=== PATIENT | female | born 1995 | race Caucasian/White ===

== ENCOUNTER 2016-12-07 17:34 | Emergency (ER) | payer BC, MEDICAID ==
[2016-12-07] MEDS ORDERED: Sodium Chloride 0.9% 2,000 ML IV ONE (19:47)
--- NOTE | 2016-12-07 19:54 | ED Physician Chart ---
ED Chief Complaint/HPI - Patient Information Date Seen:: 12/07/16 Time Seen:: 19:40 Chief Complaint:: abdominal pain History of Present Illness:: two days ago developed diffuse abdominal pain and watery diarrhea. Had diarrhea 5-6 times today. Vomited once today. Has had chills; temperature not taken. Allergies:: Allergies Allergy/AdvReac Type Severity Reaction Status Date / Time Penicillins Allergy Verified 12/07/16 17:57 Vitals:: Vital Signs - 8 hr 12/07/16 17:49 Temp 99.9 F HR 118 RR 16 BP 126/80 O2 Sat % 100 Historian:: Patient Review:: Nurse's Note Reviewed ED Review of Systems - Review of Systems General/Constitutional: Chills Skin: No skin lesions Head: No headache Eyes: No loss of vision ENT: No earache Neck: No neck pain Cardio Vascular: No chest pain Pulmonary: No SOB, No cough GI: Nausea, Vomiting, Diarrhea G/U: No dysuria Endocrine: No polyuria, No polydipsia Psychiatric: No prior psych history Hematopoietic: No bruising, No lymphadenopathy Family Medical History - Family Member Mother History Unknown: Yes ED Septic Shock - . Is Septic Shock (SBP<90, OR Lactate>4 mmol\L) present?: No - <6hrs of presentation: Vital Signs: Vital Signs - 8 hr 12/07/16 17:49 Temp 99.9 F HR 118 RR 16 BP 126/80 O2 Sat % 100
[2016-12-07 20:16] LABS: % EOSINOPHILS 0.1 % (0.0-5.0); % LYMPHOCYTES 9.2 % (20.0-50.0); % MONOCYTES 5.5 % (2.0-10.0); % NEUTROPHILS 84.2 % (40.0-80.0); HEMATOCRIT 41.4 % (35.0-45.0); HEMOGLOBIN 14.1 gm/dL (11.7-15.5); MEAN CELL VOLUME 89.6 fl (81-100); MEAN CORPUSCULAR HEMOGLOBIN 30.5 pg (27.0-31.0); MEAN CORPUSCULAR HGB CONC 34.1 pg (28.0-36.0); MEAN PLATELET VOLUME 9.1 fl; PLATELET COUNT 162 Th/cmm (150-400); RED BLOOD COUNT 4.62 Mil/cmm (3.80-5.10); RED CELL DISTRIBUTION WIDTH 11.5 % (11.5-20.0); WHITE BLOOD COUNT 8.4 Th/cmm (4.8-10.8)
[2016-12-07 20:18] LABS: URINE BILIRUBIN MODERATE (NEGATIVE); URINE BLOOD NEGATIVE (NEGATIVE); URINE GLUCOSE (UA) NEGATIVE (NEGATIVE); URINE KETONE 40 mg/dL (NEGATIVE); URINE PROTEIN 30 mg/dL (NEGATIVE); URINE UROBILINOGEN 0.2 E.U./dL (0.2 - 1.0)
[2016-12-07 20:33] LABS: ANION GAP 10.8 (7.0-16.0); BUN - UREA NITROGEN 9 mg/dL (7-25); BUN/CREATININE RATIO 11.3; CALCIUM SERUM 9.4 mg/dL (8.6-10.3); CARBON DIOXIDE 21.8 mEq/L (21.0-31.0); CHLORIDE 101 mEq/L (98-107); CREATININE - SERUM 0.8 mg/dL (0.6-1.2); GLUCOSE 88 mg/dL (70-105); MAGNESIUM 2.3 mg/dL (1.9-2.7); POTASSIUM SERUM 3.6 mEq/L (3.5-5.1); SODIUM SERUM 130 mEq/L (136-145)
[2016-12-07 20:36] LABS: URINE COLOR YELLOW
[2016-12-07 20:37] LABS: URINE BACTERIA NONE SEEN /hpf (NONE SEEN); URINE EPITHELIAL CELLS NONE SEEN /lpf (FEW); URINE RBC NONE SEEN /hpf (0-5); URINE WBC NONE SEEN /hpf (0-5)
[2016-12-07] MEDS ORDERED: HYDROmorphone 1 mg/mL 1mL Syr IVP STA (22:48)
[2016-12-07] MEDS ORDERED: HYDROmorphone 1 mg/mL 1mL Syr ONE (22:51)
--- NOTE | 2016-12-08 08:16 | Diagnostic Imaging Report ---
Abdominal ultrasound limited History: Right lower quadrant pain, rule out appendicitis Comparison: None Technique/procedure: Sonography of the right hemiabdomen was performed in multiple planes. Limited images of the right hemiabdomen were obtained. The Appendix is not visualized. No evidence of gross gallstones. IMPRESSION: The appendix is not visualized. If there is continued concern for acute appendicitis, CT examination is also recommended for further assessment.
== END 2016-12-07 23:10 | disposition home or self-care (01) ==
LOC: ER 17:34
DX: R19.7 Diarrhea, unspecified (principal); E87.1 Hypo-osmolality and hyponatremia
CPT/HCPCS: 36415-UA; 76705-TC; 80048-TC; 81001-TC; 81025-TC; 83735-TC; 85025-TC; 96374; J1170; J7030; Z7610

== ENCOUNTER 2016-12-08 14:06 | Inpatient (IN) | payer BC ==
[2016-12-08] MEDS ORDERED: IOHEXOL 300MG/ML 100 ML VIAL IVP ONE (14:07)
--- NOTE | 2016-12-08 14:37 | ED Physician Chart ---
ED Chief Complaint/HPI - Patient Information Date Seen:: 12/08/16 Time Seen:: 14:24 Chief Complaint:: RIGHT LOWER QUADRANT PAIN History of Present Illness:: THIS IS A 21 YR OLD FEMALE WHO WAS SEEN YESTERDAY BY DR. RAJPUT AND EVALUATED FOR HER ABDOMINAL PAIN. SHE RETURNED TODAY BECAUSE SHE IS NOT BETTER. SHE IS REQUESTING A CT SCAN OF THE ABDOMEN. SHE DENIES VOMITING TODAY AND HAS BEEN DRINKING PEDIALYTE. Allergies:: Allergies Allergy/AdvReac Type Severity Reaction Status Date / Time Penicillins Allergy Verified 12/07/16 17:57 Vitals:: Vital Signs - 8 hr 12/08/16 14:14 Temp 98.3 F HR 85 RR 16 BP 117/73 O2 Sat % 98 Historian:: Patient Review:: Nurse's Note Reviewed, Old Chart Reviewed ED Review of Systems - Review of Systems General/Constitutional: No fever, No chills, No weight loss, No weakness, No diaphoresis, No edema, No loss of appetite Skin: No skin lesions, No rash, No bruising Head: No headache, No light-headedness Eyes: No loss of vision, No pain, No diplopia ENT: No earache, No nasal drainage, No sore throat, No tinnitus Neck: No neck pain, No swelling, No thyromegaly, No stiffness, No mass noted Cardio Vascular: No chest pain, No palpitations, No PND, No orthopnea, No edema Pulmonary: No SOB, No cough, No sputum, No wheezing GI: No nausea, No vomiting, No diarrhea, Pain, No melena, No hematochezia, No constipation, No hematemesis G/U: No dysuria, No frequency, No hematuria Musculoskeletal: No bone or joint pain, No back pain, No muscle pain Endocrine: No polyuria, No polydipsia Psychiatric: No prior psych history, No depression, No anxiety, No suicidal ideation Hematopoietic: No bruising, No lymphadenopathy Allergic/Immuno: No urticaria, No angioedema Neurological: No syncope, No focal symptoms, No weakness, No paresthesia, No headache, No seizure, No dizziness, No confusion, No vertigo ED Past Medical History - Past Medical History Obtainable: Yes Past Medical History: No significant medical hx Family History: None Social History: Non Smoker, No Alcohol, No Drug Use Surgical History: None Psychiatricy History: None Medication: Reviewed Family Medical History - Family Member Mother History Unknown: Yes ED Physical Exam - Physical Examination General/Constitutional: Awake, Well-developed, well-nourished, Alert, No distress, GCS 15, Non-toxic appearing, Ambulatory Head: Atraumatic Eyes: Lids, conjuctiva normal, PERRL, EOMI Skin: Nl inspection, No rash, No skin lesions, No ecchymosis, Well hydrated, No lymphadenopathy ENMT: External ears, nose nl, Nasal exam nl, Lips, teeth, gums nl Neck: Nontender, Full ROM w/o pain, No JVD, No nuchal rigidity, No bruit, No mass, No stridor Respiratory: Nl effort/Exclusion, Clear to Auscultation, No Wheeze/Rhonchi/Rales Cardio Vascular: RRR, No murmur, gallop, rubs, NL S1 S2 GI: No organomegaly, No hernia, Normal BS's, Nondistended, No mass/bruits, No McBurney tenderness Other GI comments:: RIGHT LOWER QUADRANT TENDERNESS : No CVA tenderness Extremities: No tenderness or effusion, Full ROM, normal strength in all extremities, No edema, Normal digits & nails Neuro/Psych: Alert/oriented, DTR's symmetric, Normal sensory exam, Normal motor strength, Judgement/insight normal, Mood normal, Normal gait, No focal deficits Misc: normal gait, Normal back, No paraspinal tenderness ED Labs/Radiology/EKG Results - Lab Results Results: Abnormal Lab Results 12/08/16 12/08/16 12/08/16 14:44 14:44 14:44 WBC 6.6 D RBC 4.36 Hgb 13.1 Hct 39.4 MCV 90.4 MCH 30.0 MCHC Differential 33.2 RDW 11.2 L Plt Count 152 MPV 9.7 Neutrophils % 75.8 Lymphocytes % 13.4 L Monocytes % 10.3 H Eosinophils % 0.1 Basophils % 0.4 Sodium 134 L Potassium 3.8 Chloride 104 Carbon Dioxide 22.2 Anion Gap 11.6 BUN 8 Creatinine 0.8 Est GFR ( Amer) > 60.0 Est GFR (Non-Af Amer) > 60.0 BUN/Creatinine Ratio 10.0 Glucose 82 Calcium 9.1 Total Bilirubin 0.3 AST 24 ALT 23 Alkaline Phosphatase 37 Troponin I < 0.01 L Total Protein 6.9 Albumin 4.0 Globulin 2.9 Albumin/Globulin Ratio 1.4 - Radiology Results Results: CT SCAN OF THE ABDOMEN = DISTENDED GB AND DISTEND COMMON BILE DUCT ILEUS ED Assessment - Assessment General Assessment: ABDOMINAL PAIN ED Septic Shock - . Is Septic Shock (SBP<90, OR Lactate>4 mmol\L) present?: No - <6hrs of presentation: Vital Signs: Vital Signs - 8 hr 12/08/16 14:14 Temp 98.3 F HR 85 RR 16 BP 117/73 O2 Sat % 98 ED Reassessment (Disposition) - Reassessment Reassessment:: CBD DISTENTION DISTENDED GALLBLADDER ILLEUS - Diagnosis Diagnosis:: COMMON BILE DUCT DISTENSION GALLBLADDER DISTENTION ILLEUS - Patient Disposition Discharge/Transfer:: Acute Care w/in this hosp Admitted to:: Med/Surg Admitting Medical Physician:: Darnell Boone Condition at Disposition:: Unchanged ED Discharge Plan - Patient Disposition Admit/Discharge/Transfer: Acute Care w/in this hosp Condition at Disposition: Unchanged
[2016-12-08 15:22] LABS: % BASOPHILS 0.4 % (0.0-2.0); % EOSINOPHILS 0.1 % (0.0-5.0); % LYMPHOCYTES 13.4 % (20.0-50.0); % MONOCYTES 10.3 % (2.0-10.0); % NEUTROPHILS 75.8 % (40.0-80.0); HEMATOCRIT 39.4 % (35.0-45.0); HEMOGLOBIN 13.1 gm/dL (11.7-15.5); MEAN CELL VOLUME 90.4 fl (81-100); MEAN CORPUSCULAR HGB CONC 33.2 pg (28.0-36.0); MEAN PLATELET VOLUME 9.7 fl; PLATELET COUNT 152 Th/cmm (150-400); RED BLOOD COUNT 4.36 Mil/cmm (3.80-5.10); RED CELL DISTRIBUTION WIDTH 11.2 % (11.5-20.0)
[2016-12-08 15:29] LABS: WHITE BLOOD COUNT 6.6 Th/cmm (4.8-10.8)
[2016-12-08 15:43] LABS: ALB/GLOB RATIO 1.4 (1.0-1.8); ALKALINE PHOSPHATASE 37 U/L (34-104); ANION GAP 11.6 (7.0-16.0); BILIRUBIN,TOTAL 0.3 mg/dL (0.3-1.0); BUN - UREA NITROGEN 8 mg/dL (7-25); CALCIUM SERUM 9.1 mg/dL (8.6-10.3); CARBON DIOXIDE 22.2 mEq/L (21.0-31.0); CHLORIDE 104 mEq/L (98-107); CREATININE - SERUM 0.8 mg/dL (0.6-1.2); GLUCOSE 82 mg/dL (70-105); POTASSIUM SERUM 3.8 mEq/L (3.5-5.1); SGOT 24 U/L (13-39); SGPT/ALT 23 U/L (7-52); SODIUM SERUM 134 mEq/L (136-145)
[2016-12-08] MEDS ORDERED: Sodium Chloride 0.45% 500 ML IV ONE (16:28)
[2016-12-08] MEDS ORDERED: Morphine Sulfate 2 mg/mL 1mL Syr IVP PRN (20:55)
[2016-12-08] MEDS: Sodium Chloride 0.9% 1,000 ML IV SCH (22:43)
[2016-12-08 23:42] VITALS: BP 118/74
[2016-12-09 07:21] LABS: URINE BILIRUBIN SMALL (NEGATIVE); URINE BLOOD NEGATIVE (NEGATIVE); URINE COLOR y; URINE GLUCOSE (UA) NEGATIVE (NEGATIVE); URINE KETONE >=80 mg/dL (NEGATIVE); URINE PH 6.5 (4.6 - 8.0); URINE PROTEIN TRACE mg/dL (NEGATIVE); URINE UROBILINOGEN 0.2 E.U./dL (0.2 - 1.0)
[2016-12-09 07:28] LABS: URINE BACTERIA FEW /hpf (NONE SEEN); URINE EPITHELIAL CELLS MODERATE /lpf (FEW); URINE RBC NONE SEEN /hpf (0-5)
--- NOTE | 2016-12-09 09:10 | Diagnostic Imaging Report ---
Exam: CT examination abdomen pelvis. HISTORY: Right lower quadrant pain. Total DLP equals 288 CTDI equals 6.8 Findings: Multiple contiguous thin section of the abdomen pelvis obtained from lower thorax to pubic symphysis with administration of intravenous contrast material. Oral contrast was not utilized no prior studies available for comparison. The study demonstrates normal aeration of lung parenchyma the bases There is evidence for a hepatic splenomegaly. The gallbladder is distended. The common bile duct is slightly prominent. Clinical correlation ultrasound examination of the gallbladder is recommended. Pancreas poorly seen. The adrenal glands are normal. The kidneys concentrate and excrete contrast material normal fashion. No free fluid is noted. There is evidence of for a large inhomogeneous uterus most likely due to fibroid infiltration. There is a question of ovarian cysts if clinically indicated ultrasound examination of pelvis might be helpful. Small amount of fluid in the cul-de-sac appreciated might be physiological. Mild distention small bowel loops the lower abdomen noted mild ileus cannot be excluded. IMPRESSION: 1. Distended gallbladder with prominent common bile duct ultrasound examination of gallbladder is recommended. 2. Enlarged bulky uterus most likely due to fibroid infiltration. Ovarian cysts cannot be excluded ultrasound examination of pelvis might be helpful. 3. Mild ileus.
[2016-12-09] MEDS: Sodium Chloride 0.9% 1,000 ML IV SCH ×2 (09:15→19:08)
--- NOTE | 2016-12-09 13:24 | General Progress Note ---
Subjective - Review of Systems Service Date: 12/09/16 Events since last encounter: consult dictated has GB stones with dilated CBD will order HIDA and schedule for surgery Objective - Results Result Diagrams: 12/08/16 14:44 12/08/16 14:44 Recent Labs: Laboratory Last Values WBC 6.6 Th/cmm (4.8-10.8) D 12/08/16 14:44 RBC 4.36 Mil/cmm (3.80-5.10) 12/08/16 14:44 Hgb 13.1 gm/dL (11.7-15.5) 12/08/16 14:44 Hct 39.4 % (35.0-45.0) 12/08/16 14:44 MCV 90.4 fl (81-100) 12/08/16 14:44 MCH 30.0 pg (27.0-31.0) 12/08/16 14:44 MCHC Differential 33.2 pg (28.0-36.0) 12/08/16 14:44 RDW 11.2 % (11.5-20.0) L 12/08/16 14:44 Plt Count 152 Th/cmm (150-400) 12/08/16 14:44 MPV 9.7 fl 12/08/16 14:44 Neutrophils % 75.8 % (40.0-80.0) 12/08/16 14:44 Lymphocytes % 13.4 % (20.0-50.0) L 12/08/16 14:44 Monocytes % 10.3 % (2.0-10.0) H 12/08/16 14:44 Eosinophils % 0.1 % (0.0-5.0) 12/08/16 14:44 Basophils % 0.4 % (0.0-2.0) 12/08/16 14:44 Sodium 134 mEq/L (136-145) L 12/08/16 14:44 Potassium 3.8 mEq/L (3.5-5.1) 12/08/16 14:44 Chloride 104 mEq/L (98-107) 12/08/16 14:44 Carbon Dioxide 22.2 mEq/L (21.0-31.0) 12/08/16 14:44 Anion Gap 11.6 (7.0-16.0) 12/08/16 14:44 BUN 8 mg/dL (7-25) 12/08/16 14:44 Creatinine 0.8 mg/dL (0.6-1.2) 12/08/16 14:44 Est GFR ( Amer) > 60.0 ml/min (>90) 12/08/16 14:44 Est GFR (Non-Af Amer) > 60.0 ml/min 12/08/16 14:44 BUN/Creatinine Ratio 10.0 12/08/16 14:44 Glucose 82 mg/dL (70-105) 12/08/16 14:44 Calcium 9.1 mg/dL (8.6-10.3) 12/08/16 14:44 Total Bilirubin 0.3 mg/dL (0.3-1.0) 12/08/16 14:44 AST 24 U/L (13-39) 12/08/16 14:44 ALT 23 U/L (7-52) 12/08/16 14:44 Alkaline Phosphatase 37 U/L (34-104) 12/08/16 14:44 Troponin I < 0.01 ng/mL (0.01-0.05) L 12/08/16 14:44 Total Protein 6.9 gm/dL (6.0-8.3) 12/08/16 14:44 Albumin 4.0 gm/dL (3.7-5.3) 12/08/16 14:44 Globulin 2.9 gm/dL 12/08/16 14:44 Albumin/Globulin Ratio 1.4 (1.0-1.8) 12/08/16 14:44 Amylase 41 U/L (29-103) 12/08/16 14:44 Lipase 29 U/L (11-82) 12/08/16 14:44 TSH 3.17 uIU/ml (0.34-5.60) 12/08/16 14:44 Urine Source CLEAN C 12/09/16 06:30 Urine Color y 12/09/16 06:30 Urine Clarity sl. cloudy (CLEAR) 12/09/16 06:30 Urine pH 6.5 (4.6 - 8.0) 12/09/16 06:30 Ur Specific [place] 1.010 (1.005-1.030) 12/09/16 06:30 Urine Protein TRACE mg/dL (NEGATIVE) 12/09/16 06:30 Urine Glucose (UA) NEGATIVE mg/dL (NEGATIVE) 12/09/16 06:30 Urine Ketones >=80 mg/dL (NEGATIVE) H 12/09/16 06:30 Urine Blood NEGATIVE (NEGATIVE) 12/09/16 06:30 Urine Nitrate NEGATIVE (NEGATIVE) 12/09/16 06:30 Urine Bilirubin SMALL (NEGATIVE) H 12/09/16 06:30 Urine Urobilinogen 0.2 E.U./dL (0.2 - 1.0) 12/09/16 06:30 Ur Leukocyte Esterase NEGATIVE (NEGATIVE) 12/09/16 06:30 Urine RBC NONE SEEN /hpf (0-5) 12/09/16 06:30 Urine WBC 2-5 /hpf (0-5) 12/09/16 06:30 Ur Epithelial Cells MODERATE /lpf (FEW) 12/09/16 06:30 Urine Bacteria FEW /hpf (NONE SEEN) 12/09/16 06:30 RPR NONREACTIVE (NONREACTIVE) 12/08/16 14:44 - Physical Exam Vitals and I&O: Vital Signs Temp 98 F 12/09/16 04:00 Pulse 67 12/09/16 04:00 Resp 18 12/09/16 04:00 BP 116/72 12/09/16 04:00 Pulse Ox 99 12/09/16 04:00 Intake & Output 12/08/16 12/09/16 12/09/16 18:59 06:59 18:59 Intake Total 948 Balance 948 Weight (lbs) 51.71 kg Intake: Intake, IV Amount 948 Sodium Chloride 0.9% 1, 948 000 ml @ 90 mls/hr IV . Q11H7M [facility] Rx#:[id number] Other: # Voids 1 # Bowel Movements 0 Active Medications: Current Medications Sodium Chloride (Nacl 0.9%) 1,000 mls @ 90 mls/hr IV .Q11H7M [facility] Stop: 02/06/17 20:48 Last Admin: 12/09/16 09:15 Dose: 90 mls/hr Morphine Sulfate (Morphine) 1 mg IVP Q6H PRN PRN Reason: Abdominal Pain Stop: 02/06/17 20:54 Assessment/Plan - Problem List Patient Problems: All Active Problems MID ABDOMINAL PAIN AROUND THE UMBILICUS (Acute)
--- NOTE | 2016-12-09 13:46 | Consultation ---
DATE OF CONSULTATION: 12/09/2016 REFERRING PHYSICIAN: Dr. Newton. REASON FOR CONSULTATION: Abdominal pain. Thank you for referring this patient to me. HISTORY OF PRESENT ILLNESS: This is a 21-year-old female who has had abdominal pain for the last 3 days. Associated with this, has been diarrhea. The patient came to ER and discharged, came back with increasing abdominal pain. She underwent CT scan of the abdomen this time and this showed distended gallbladder with prominent common bile duct and large uterus. WBC was normal. The liver function tests also normal. PHYSICAL EXAMINATION: There is moderate tenderness in the right upper and lower quadrants. RECOMMENDATIONS: We will order a HIDA scan to rule out common bile duct stones. Informed consent discussed with the patient regarding possible surgery, especially in view of her travelling so much with her boyfriend who is a DJ with the [employer]. Thank you, we will follow with you. JOB# [id number]
--- NOTE | 2016-12-09 15:51 | History and Physical ---
History of Present Illness - HPI Chief Complaint: Abdominal pain and diarrhea HPI: Patient refer benji last Sunday she just came from vacations in [place], 3 days after she came started with Abdominal pain colic type accompanied with diarrhea x 8, the first day and 5 times the next day, Pain increased reason why she decided to come to ER. Vital Signs: Last Vital Signs Temp 98 F 12/09/16 04:00 Pulse 67 12/09/16 04:00 Resp 18 12/09/16 04:00 BP 116/72 12/09/16 04:00 Pulse Ox 99 12/09/16 04:00 Past Medical History Cardiovascular: Report: No Pertinent Hx Pulmonary: Report: No Pertinent Hx ELECTRON BEAM WELDER: Report: No Pertinent Hx GI: Report: No Pertinent Hx Psych: Report: No Pertinent Hx Musculoskeletal: Report: No Pertinent Hx Rheumatologic: Report: No pertinent Hx Infectious Disease: Report: No Pertinent Hx Renal/: Report: No Pertinent Hx Endocrine: Report: No Pertinent Hx Dermatology: Report: No Pertinent Hx - Past Surgical History Past Surgical History: No pertinent Hx Family Medical History - Family Member Mother History Unknown: Yes Ethnicity: Living Status: Unknown Social History Smoke: No Alcohol: None Drugs: None Lives: With Family Domestic Violence: Negative - Medications Home Medications: Home Medication Medication Instructions Recorded Type NK [No Home Meds] 12/08/16 History - Allergies Allergies/Adverse Reactions: Allergies Allergy/AdvReac Type Severity Reaction Status Date / Time Penicillins Allergy Verified 12/07/16 17:57 Review of Systems - Review of Systems Constitutional: Report: No Significant Eyes: Report: No Significant ENT: Report: No Significant Respiratory: Report: No Significant Cardiovascular: Report: No Significant Gastrointestinal: Report: Nausea, Abdominal Pain, Diarrhea Genitourinary: Report: No Significant Musculoskeletal: Report: No Significant Neurological: Report: No Significant Physical Exam - Physical Exam HEENT: Report: Ears Nose Throat within normal limits Neck: Report: Within normal limits Cardiovascular Systems: Report: Regular, Rate and Rhythm Respiratory: Report: Breath Sounds are within normal limits Abdomen: Report: Tender to palpation (BS increased, Tender in all colon.) Back: Report: Inspection of back is within normal limits. Extremities: Report: Non-tender to palpation. Skin: Report: Color of skin is within normal limits, Warm, Dry Neuro/Psych: Report: Mood affect is within normal limits - Lab Results All Lab Results last 24 hours: Laboratory Last Values WBC 6.6 Th/cmm (4.8-10.8) D 12/08/16 14:44 RBC 4.36 Mil/cmm (3.80-5.10) 12/08/16 14:44 Hgb 13.1 gm/dL (11.7-15.5) 12/08/16 14:44 Hct 39.4 % (35.0-45.0) 12/08/16 14:44 MCV 90.4 fl (81-100) 12/08/16 14:44 MCH 30.0 pg (27.0-31.0) 12/08/16 14:44 MCHC Differential 33.2 pg (28.0-36.0) 12/08/16 14:44 RDW 11.2 % (11.5-20.0) L 12/08/16 14:44 Plt Count 152 Th/cmm (150-400) 12/08/16 14:44 MPV 9.7 fl 12/08/16 14:44 Neutrophils % 75.8 % (40.0-80.0) 12/08/16 14:44 Lymphocytes % 13.4 % (20.0-50.0) L 12/08/16 14:44 Monocytes % 10.3 % (2.0-10.0) H 12/08/16 14:44 Eosinophils % 0.1 % (0.0-5.0) 12/08/16 14:44 Basophils % 0.4 % (0.0-2.0) 12/08/16 14:44 Sodium 134 mEq/L (136-145) L 12/08/16 14:44 Potassium 3.8 mEq/L (3.5-5.1) 12/08/16 14:44 Chloride 104 mEq/L (98-107) 12/08/16 14:44 Carbon Dioxide 22.2 mEq/L (21.0-31.0) 12/08/16 14:44 Anion Gap 11.6 (7.0-16.0) 12/08/16 14:44 BUN 8 mg/dL (7-25) 12/08/16 14:44 Creatinine 0.8 mg/dL (0.6-1.2) 12/08/16 14:44 Est GFR ( Amer) > 60.0 ml/min (>90) 12/08/16 14:44 Est GFR (Non-Af Amer) > 60.0 ml/min 12/08/16 14:44 BUN/Creatinine Ratio 10.0 12/08/16 14:44 Glucose 82 mg/dL (70-105) 12/08/16 14:44 Calcium 9.1 mg/dL (8.6-10.3) 12/08/16 14:44 Total Bilirubin 0.3 mg/dL (0.3-1.0) 12/08/16 14:44 AST 24 U/L (13-39) 12/08/16 14:44 ALT 23 U/L (7-52) 12/08/16 14:44 Alkaline Phosphatase 37 U/L (34-104) 12/08/16 14:44 Troponin I < 0.01 ng/mL (0.01-0.05) L 12/08/16 14:44 Total Protein 6.9 gm/dL (6.0-8.3) 12/08/16 14:44 Albumin 4.0 gm/dL (3.7-5.3) 12/08/16 14:44 Globulin 2.9 gm/dL 12/08/16 14:44 Albumin/Globulin Ratio 1.4 (1.0-1.8) 12/08/16 14:44 Amylase 41 U/L (29-103) 12/08/16 14:44 Lipase 29 U/L (11-82) 12/08/16 14:44 TSH 3.17 uIU/ml (0.34-5.60) 12/08/16 14:44 Urine Source CLEAN C 12/09/16 06:30 Urine Color y 12/09/16 06:30 Urine Clarity sl. cloudy (CLEAR) 12/09/16 06:30 Urine pH 6.5 (4.6 - 8.0) 12/09/16 06:30 Ur Specific [place] 1.010 (1.005-1.030) 12/09/16 06:30 Urine Protein TRACE mg/dL (NEGATIVE) 12/09/16 06:30 Urine Glucose (UA) NEGATIVE mg/dL (NEGATIVE) 12/09/16 06:30 Urine Ketones >=80 mg/dL (NEGATIVE) H 12/09/16 06:30 Urine Blood NEGATIVE (NEGATIVE) 12/09/16 06:30 Urine Nitrate NEGATIVE (NEGATIVE) 12/09/16 06:30 Urine Bilirubin SMALL (NEGATIVE) H 12/09/16 06:30 Urine Urobilinogen 0.2 E.U./dL (0.2 - 1.0) 12/09/16 06:30 Ur Leukocyte Esterase NEGATIVE (NEGATIVE) 12/09/16 06:30 Urine RBC NONE SEEN /hpf (0-5) 12/09/16 06:30 Urine WBC 2-5 /hpf (0-5) 12/09/16 06:30 Ur Epithelial Cells MODERATE /lpf (FEW) 12/09/16 06:30 Urine Bacteria FEW /hpf (NONE SEEN) 12/09/16 06:30 Urine Test NEGATIVE 12/09/16 13:41 RPR NONREACTIVE (NONREACTIVE) 12/08/16 14:44 Laboratory Results - last 24 hr 12/09/16 12/09/16 06:30 13:41 Urine Source CLEAN C Urine Color y Urine Clarity sl. cloudy Urine pH 6.5 Ur Specific [place] 1.010 Urine Protein TRACE Urine Glucose (UA) NEGATIVE Urine Ketones >=80 H Urine Blood NEGATIVE Urine Nitrate NEGATIVE Urine Bilirubin SMALL H Urine Urobilinogen 0.2 Ur Leukocyte Esterase NEGATIVE Urine RBC NONE SEEN Urine WBC 2-5 Ur Epithelial Cells MODERATE Urine Bacteria FEW Urine Test NEGATIVE - Assessment Assessment: Current Active Problems Problem Status Onset MID ABDOMINAL PAIN AROUND THE UMBILICUS Acute Patient is awake, calm, in no acuter distress. Dx: amebic colitis, cholecystitis - Plan Plan: Patient in pain control, Metronidazole started, NPO except meds. Hida scan is ordered, Abdominal and Pelvic US ordered. Patient already seen by Surgery. Will continue to monitor
[2016-12-09] MEDS ORDERED: metroNIDAZOLE 500 mg/100 mL Premix Bag IV SCH (21:00)
[2016-12-10] MEDS: Sodium Chloride 0.9% 1,000 ML IV SCH (06:26)
[2016-12-10 06:54] LABS: ALB/GLOB RATIO 1.3 (1.0-1.8); ALKALINE PHOSPHATASE 43 U/L (34-104); ANION GAP 8.4 (7.0-16.0); BILIRUBIN,TOTAL 0.2 mg/dL (0.3-1.0); BUN - UREA NITROGEN 7 mg/dL (7-25); BUN/CREATININE RATIO 8.8; CALCIUM SERUM 8.5 mg/dL (8.6-10.3); CARBON DIOXIDE 21.4 mEq/L (21.0-31.0); CHLORIDE 107 mEq/L (98-107); CREATININE - SERUM 0.8 mg/dL (0.6-1.2); GLUCOSE 75 mg/dL (70-105); POTASSIUM SERUM 3.8 mEq/L (3.5-5.1); SGOT 26 U/L (13-39); SGPT/ALT 20 U/L (7-52); SODIUM SERUM 133 mEq/L (136-145)
[2016-12-10 06:55] LABS: % BASOPHILS 0.3 % (0.0-2.0); % EOSINOPHILS 0.5 % (0.0-5.0); % LYMPHOCYTES 34.3 % (20.0-50.0); % MONOCYTES 14.8 % (2.0-10.0); % NEUTROPHILS 50.1 % (40.0-80.0); HEMATOCRIT 35.6 % (35.0-45.0); HEMOGLOBIN 12.2 gm/dL (11.7-15.5); MEAN CELL VOLUME 89.2 fl (81-100); MEAN CORPUSCULAR HEMOGLOBIN 30.6 pg (27.0-31.0); MEAN CORPUSCULAR HGB CONC 34.3 pg (28.0-36.0); MEAN PLATELET VOLUME 9.8 fl; NEUTROPHILE ABSOLUTE 2.9 Th/cmm (1.8-8.0); PLATELET COUNT 132 Th/cmm (150-400); RED CELL DISTRIBUTION WIDTH 11.3 % (11.5-20.0); WHITE BLOOD COUNT 5.7 Th/cmm (4.8-10.8)
--- NOTE | 2016-12-10 09:40 | General Progress Note ---
Subjective - Review of Systems Service Date: 12/10/16 Subjective: I feel fine. Objective - Results Result Diagrams: 12/10/16 06:15 12/10/16 06:15 Recent Labs: Laboratory Last Values WBC 5.7 Th/cmm (4.8-10.8) 12/10/16 06:15 RBC 4.00 Mil/cmm (3.80-5.10) 12/10/16 06:15 Hgb 12.2 gm/dL (11.7-15.5) 12/10/16 06:15 Hct 35.6 % (35.0-45.0) 12/10/16 06:15 MCV 89.2 fl (81-100) 12/10/16 06:15 MCH 30.6 pg (27.0-31.0) 12/10/16 06:15 MCHC Differential 34.3 pg (28.0-36.0) 12/10/16 06:15 RDW 11.3 % (11.5-20.0) L 12/10/16 06:15 Plt Count 132 Th/cmm (150-400) L 12/10/16 06:15 MPV 9.8 fl 12/10/16 06:15 Neutrophils % 50.1 % (40.0-80.0) 12/10/16 06:15 Lymphocytes % 34.3 % (20.0-50.0) 12/10/16 06:15 Monocytes % 14.8 % (2.0-10.0) H 12/10/16 06:15 Eosinophils % 0.5 % (0.0-5.0) 12/10/16 06:15 Basophils % 0.3 % (0.0-2.0) 12/10/16 06:15 Sodium 133 mEq/L (136-145) L 12/10/16 06:15 Potassium 3.8 mEq/L (3.5-5.1) 12/10/16 06:15 Chloride 107 mEq/L (98-107) 12/10/16 06:15 Carbon Dioxide 21.4 mEq/L (21.0-31.0) 12/10/16 06:15 Anion Gap 8.4 (7.0-16.0) 12/10/16 06:15 BUN 7 mg/dL (7-25) 12/10/16 06:15 Creatinine 0.8 mg/dL (0.6-1.2) 12/10/16 06:15 Est GFR ( Amer) > 60.0 ml/min (>90) 12/10/16 06:15 Est GFR (Non-Af Amer) > 60.0 ml/min 12/10/16 06:15 BUN/Creatinine Ratio 8.8 12/10/16 06:15 Glucose 75 mg/dL (70-105) 12/10/16 06:15 Calcium 8.5 mg/dL (8.6-10.3) L 12/10/16 06:15 Total Bilirubin 0.2 mg/dL (0.3-1.0) L 12/10/16 06:15 AST 26 U/L (13-39) 12/10/16 06:15 ALT 20 U/L (7-52) 12/10/16 06:15 Alkaline Phosphatase 43 U/L (34-104) 12/10/16 06:15 Troponin I < 0.01 ng/mL (0.01-0.05) L 12/08/16 14:44 Total Protein 6.1 gm/dL (6.0-8.3) 12/10/16 06:15 Albumin 3.4 gm/dL (3.7-5.3) L 12/10/16 06:15 Globulin 2.7 gm/dL 12/10/16 06:15 Albumin/Globulin Ratio 1.3 (1.0-1.8) 12/10/16 06:15 Amylase 41 U/L (29-103) 12/08/16 14:44 Lipase 29 U/L (11-82) 12/08/16 14:44 TSH 3.17 uIU/ml (0.34-5.60) 12/08/16 14:44 Urine Source CLEAN C 12/09/16 06:30 Urine Color y 12/09/16 06:30 Urine Clarity sl. cloudy (CLEAR) 12/09/16 06:30 Urine pH 6.5 (4.6 - 8.0) 12/09/16 06:30 Ur Specific [place] 1.010 (1.005-1.030) 12/09/16 06:30 Urine Protein TRACE mg/dL (NEGATIVE) 12/09/16 06:30 Urine Glucose (UA) NEGATIVE mg/dL (NEGATIVE) 12/09/16 06:30 Urine Ketones >=80 mg/dL (NEGATIVE) H 12/09/16 06:30 Urine Blood NEGATIVE (NEGATIVE) 12/09/16 06:30 Urine Nitrate NEGATIVE (NEGATIVE) 12/09/16 06:30 Urine Bilirubin SMALL (NEGATIVE) H 12/09/16 06:30 Urine Urobilinogen 0.2 E.U./dL (0.2 - 1.0) 12/09/16 06:30 Ur Leukocyte Esterase NEGATIVE (NEGATIVE) 12/09/16 06:30 Urine RBC NONE SEEN /hpf (0-5) 12/09/16 06:30 Urine WBC 2-5 /hpf (0-5) 12/09/16 06:30 Ur Epithelial Cells MODERATE /lpf (FEW) 12/09/16 06:30 Urine Bacteria FEW /hpf (NONE SEEN) 12/09/16 06:30 Urine Test NEGATIVE 12/09/16 13:41 RPR NONREACTIVE (NONREACTIVE) 12/08/16 14:44 - Physical Exam Vitals and I&O: Vital Signs Temp 97.9 F 12/10/16 04:00 Pulse 64 12/10/16 04:00 Resp 19 12/10/16 04:00 BP 123/87 12/10/16 04:00 Pulse Ox 98 12/10/16 04:00 Intake & Output 12/09/16 12/10/16 12/10/16 18:59 06:59 18:59 Intake Total 948 2009.5 Balance 948 2009.5 Weight (lbs) 52.163 kg Intake: Intake, IV Amount 948 1889.5 Sodium Chloride 0.9% 1, 948 1889.5 000 ml @ 90 mls/hr IV . Q11H7M [facility] Rx#:[id number] Oral 120 Other: # Voids 1 Stool Characteristics Soft Bloody Active Medications: Current Medications Sodium Chloride (Nacl 0.9%) 1,000 mls @ 90 mls/hr IV .Q11H7M [facility] Stop: 02/06/17 20:48 Last Admin: 12/10/16 06:26 Dose: 90 mls/hr Levofloxacin (Levaquin) 500 mg PO DAILY [facility] Stop: 02/08/17 09:44 Metronidazole (Flagyl) 500 mg PO TID [facility] Stop: 02/07/17 20:59 Last Admin: 12/10/16 09:34 Dose: 500 mg Morphine Sulfate (Morphine) 1 mg IVP Q6H PRN PRN Reason: Abdominal Pain Stop: 02/06/17 20:54 General: Alert, Oriented x3, Cooperative, No acute distress HEENT: Atraumatic Neck: Supple Cardiovascular: Regular rate Lungs: Clear to auscultation Abdomen: Bowel sounds, Tender Extremities: Other (No edema) Neurological: Normal gait Skin: Other (Warm and dry) Psych/Mental Status: Mental status NL Assessment/Plan - Problem List Patient Problems: All Active Problems MID ABDOMINAL PAIN AROUND THE UMBILICUS (Acute) - Assessment Assessment: Current Active Problems Problem Status Onset MID ABDOMINAL PAIN AROUND THE UMBILICUS Acute Patient is awake, calm, in no acuter distress. Dx: amebic colitis, cholecystitis - Plan Plan: Patient in pain control, Levaquin and Metronidazole started, NPO except meds. Hida scan is ordered, Abdominal and Pelvic US ordered. Patient already seen by Surgery. Will continue to monitor
--- NOTE | 2016-12-10 11:31 | General Progress Note ---
Subjective - Review of Systems Service Date: 12/10/16 Events since last encounter: labs today ok for HIDA scan - CT shows dilated CBD will schedule for surgery in AM Objective - Results Result Diagrams: 12/10/16 06:15 12/10/16 06:15 Recent Labs: Laboratory Last Values WBC 5.7 Th/cmm (4.8-10.8) 12/10/16 06:15 RBC 4.00 Mil/cmm (3.80-5.10) 12/10/16 06:15 Hgb 12.2 gm/dL (11.7-15.5) 12/10/16 06:15 Hct 35.6 % (35.0-45.0) 12/10/16 06:15 MCV 89.2 fl (81-100) 12/10/16 06:15 MCH 30.6 pg (27.0-31.0) 12/10/16 06:15 MCHC Differential 34.3 pg (28.0-36.0) 12/10/16 06:15 RDW 11.3 % (11.5-20.0) L 12/10/16 06:15 Plt Count 132 Th/cmm (150-400) L 12/10/16 06:15 MPV 9.8 fl 12/10/16 06:15 Neutrophils % 50.1 % (40.0-80.0) 12/10/16 06:15 Lymphocytes % 34.3 % (20.0-50.0) 12/10/16 06:15 Monocytes % 14.8 % (2.0-10.0) H 12/10/16 06:15 Eosinophils % 0.5 % (0.0-5.0) 12/10/16 06:15 Basophils % 0.3 % (0.0-2.0) 12/10/16 06:15 Sodium 133 mEq/L (136-145) L 12/10/16 06:15 Potassium 3.8 mEq/L (3.5-5.1) 12/10/16 06:15 Chloride 107 mEq/L (98-107) 12/10/16 06:15 Carbon Dioxide 21.4 mEq/L (21.0-31.0) 12/10/16 06:15 Anion Gap 8.4 (7.0-16.0) 12/10/16 06:15 BUN 7 mg/dL (7-25) 12/10/16 06:15 Creatinine 0.8 mg/dL (0.6-1.2) 12/10/16 06:15 Est GFR ( Amer) > 60.0 ml/min (>90) 12/10/16 06:15 Est GFR (Non-Af Amer) > 60.0 ml/min 12/10/16 06:15 BUN/Creatinine Ratio 8.8 12/10/16 06:15 Glucose 75 mg/dL (70-105) 12/10/16 06:15 Calcium 8.5 mg/dL (8.6-10.3) L 12/10/16 06:15 Total Bilirubin 0.2 mg/dL (0.3-1.0) L 12/10/16 06:15 AST 26 U/L (13-39) 12/10/16 06:15 ALT 20 U/L (7-52) 12/10/16 06:15 Alkaline Phosphatase 43 U/L (34-104) 12/10/16 06:15 Troponin I < 0.01 ng/mL (0.01-0.05) L 12/08/16 14:44 Total Protein 6.1 gm/dL (6.0-8.3) 12/10/16 06:15 Albumin 3.4 gm/dL (3.7-5.3) L 12/10/16 06:15 Globulin 2.7 gm/dL 12/10/16 06:15 Albumin/Globulin Ratio 1.3 (1.0-1.8) 12/10/16 06:15 Amylase 41 U/L (29-103) 12/08/16 14:44 Lipase 29 U/L (11-82) 12/08/16 14:44 TSH 3.17 uIU/ml (0.34-5.60) 12/08/16 14:44 Urine Source CLEAN C 12/09/16 06:30 Urine Color y 12/09/16 06:30 Urine Clarity sl. cloudy (CLEAR) 12/09/16 06:30 Urine pH 6.5 (4.6 - 8.0) 12/09/16 06:30 Ur Specific [place] 1.010 (1.005-1.030) 12/09/16 06:30 Urine Protein TRACE mg/dL (NEGATIVE) 12/09/16 06:30 Urine Glucose (UA) NEGATIVE mg/dL (NEGATIVE) 12/09/16 06:30 Urine Ketones >=80 mg/dL (NEGATIVE) H 12/09/16 06:30 Urine Blood NEGATIVE (NEGATIVE) 12/09/16 06:30 Urine Nitrate NEGATIVE (NEGATIVE) 12/09/16 06:30 Urine Bilirubin SMALL (NEGATIVE) H 12/09/16 06:30 Urine Urobilinogen 0.2 E.U./dL (0.2 - 1.0) 12/09/16 06:30 Ur Leukocyte Esterase NEGATIVE (NEGATIVE) 12/09/16 06:30 Urine RBC NONE SEEN /hpf (0-5) 12/09/16 06:30 Urine WBC 2-5 /hpf (0-5) 12/09/16 06:30 Ur Epithelial Cells MODERATE /lpf (FEW) 12/09/16 06:30 Urine Bacteria FEW /hpf (NONE SEEN) 12/09/16 06:30 Urine Test NEGATIVE 12/09/16 13:41 RPR NONREACTIVE (NONREACTIVE) 12/08/16 14:44 - Physical Exam Vitals and I&O: Vital Signs Temp 97.9 F 12/10/16 04:00 Pulse 64 12/10/16 04:00 Resp 20 12/10/16 08:00 BP 123/87 12/10/16 04:00 Pulse Ox 98 12/10/16 04:00 Intake & Output 12/09/16 12/10/16 12/10/16 18:59 06:59 18:59 Intake Total 948 2008.5 Balance 948 2009.5 Weight (lbs) 52.163 kg 52.163 kg Intake: Intake, IV Amount 948 1889.5 Sodium Chloride 0.9% 1, 948 1889.5 000 ml @ 90 mls/hr IV . Q11H7M [facility] Rx#:[id number] Oral 120 Other: # Voids 1 Stool Characteristics Soft Bloody Active Medications: Current Medications Sodium Chloride (Nacl 0.9%) 1,000 mls @ 90 mls/hr IV .Q11H7M [facility] Stop: 02/06/17 20:48 Last Admin: 12/10/16 06:26 Dose: 90 mls/hr Levofloxacin (Levaquin) 500 mg PO DAILY [facility] Stop: 02/08/17 09:44 Metronidazole (Flagyl) 500 mg PO TID [facility] Stop: 02/07/17 20:59 Last Admin: 12/10/16 09:34 Dose: 500 mg Morphine Sulfate (Morphine) 1 mg IVP Q6H PRN PRN Reason: Abdominal Pain Stop: 02/06/17 20:54 General: Alert, Oriented x3, Cooperative, No acute distress HEENT: Atraumatic Neck: Supple Cardiovascular: Regular rate Lungs: Clear to auscultation Abdomen: Bowel sounds, Tender Extremities: Other (No edema) Neurological: Normal gait Skin: Other (Warm and dry) Psych/Mental Status: Mental status NL Assessment/Plan - Problem List Patient Problems: All Active Problems MID ABDOMINAL PAIN AROUND THE UMBILICUS (Acute)
--- NOTE | 2016-12-10 13:02 | Consultation ---
DATE OF CONSULTATION: 12/10/2016 REASON FOR CONSULT: Abdominal pain. HISTORY OF PRESENT ILLNESS: This is a 21-year-old female without significant past medical history who presents after having persistent abdominal pain and diarrhea after a trip to [place]. The patient states she had several days of diarrhea after returning from her trip. She states the diarrhea as watery and nonbloody. She also had pain in the mid abdomen as well. Initial imaging showed evidence of possible distended gallbladder and prominent common bile duct; however, the patient's liver function tests are normal. The patient states currently she no longer has diarrhea. States her abdominal pain is improved. PAST MEDICAL HISTORY: As per HPI. PAST SURGICAL HISTORY: As per HPI. SOCIAL HISTORY: Denies any tobacco, alcohol, or drugs. FAMILY HISTORY: No family history of GI malignancies. MEDICATIONS: No home medications. ALLERGIES: PENICILLIN. REVIEW OF SYSTEMS: As per HPI. PHYSICAL EXAMINATION: VITAL SIGNS: Temperature is 97.9, pulse 64, respirations 19, blood pressure 123/87. GENERAL: No acute distress. CARDIOVASCULAR: Regular rhythm. ABDOMEN: Soft, nontender. EXTREMITIES: No deformities. LABORATORY DATA: White count 6.6, hemoglobin 13.1, platelets 152, total bilirubin 0.3, AST 24, ALT 23, lipase 29. IMAGING: The patient had abdominal and pelvic CT, which did suggest distended gallbladder and prominent common bile duct. ASSESSMENT AND PLAN: This is a 21-year-old female presenting with mid abdominal pain and diarrhea, which now appears resolved. The patient may have had a self-limited gastroenteritis or food poisoning, which appears to be resolved now. The patient has not complained of any right upper quadrant pain; however, CT does show evidence of possible dilated gallbladder and prominent common bile duct. We will await HIDA scan results to assess for cholecystitis. At this point, it does not appear patient has any common bile duct stone as the patient's LFTs are normal. Thank you for this consult and allowing us to participate in care of this patient. [facility]# [id number]
--- NOTE | 2016-12-11 07:48 | Diagnostic Imaging Report ---
Ultrasound abdomen HISTORY: Abdominal pain, rule out gallstones COMPARISON: None Technique: Sonography of the abdomen was performed in multiple planes. FINDINGS: The liver demonstrates normal echogenicity with no evidence of focal lesions. The liver measures 18 cm. No evidence of gallstones or gallbladder wall thickening. The common bile duct measures 4 mm. Evaluation of the pancreas is limited due to bowel gas. The right kidney measures 9.7 x 4 cm. There is fullness of the right renal collecting system without kenny hydronephrosis. The left kidney measures 9.4 cm. No evidence of focal lesions or hydronephrosis. The spleen measures 10.5 cm. The visualized portions of the abdominal aorta are within normal limits in size. IMPRESSION: No evidence of gallstones Mild hepatomegaly. Nonspecific fullness of the right renal collecting system without evidence of kenny hydronephrosis. No sonographic evidence of renal stones.
--- NOTE | 2016-12-11 07:50 | Diagnostic Imaging Report ---
Ultrasound pelvis HISTORY: Enlarged uterus, test is negative COMPARISON: CT abdomen and pelvis performed on 12/08/2016 Technique: Longitudinal and transverse sonographic sector images of the pelvis were obtained transabdominally and transvaginally. FINDINGS: The uterus measures 8.8 x 4.1 x 4.3 cm. No uterine fibroids identified. Endometrium measures 9 mm. The right ovary measures 3.5 x 1.8 cm. The left ovary measures 2.1 x 2.4 cm. Bilateral ovarian follicular cystic changes are noted. Small amount of fluid is noted within the pelvic cul-de-sac. Vascular flow to both ovaries is noted. IMPRESSION: No evidence of uterine fibroids. Bilateral small ovarian follicular cystic changes, likely physiologic. Small amount of free fluid in the pelvis.
--- NOTE | 2016-12-12 08:56 | Discharge Summary ---
General Discharge Summary - Discharge Summary Date of Admission: 12/08/16 Admitting Diagnosis: Amebic colitis, Cholecystitis Patient Problems: All Active Problems MID ABDOMINAL PAIN AROUND THE UMBILICUS (Acute) Discharge Date: 12/10/16 Discharge Diagnosis: Amebic colitis, cholecystitis Laboratory Findings: Laboratory Tests 12/09/16 12/09/16 12/10/16 06:30 13:41 06:15 WBC 5.7 RBC 4.00 Hgb 12.2 Hct 35.6 MCV 89.2 MCH 30.6 MCHC Differential 34.3 RDW 11.3 L Plt Count 132 L MPV 9.8 Neutrophils % 50.1 Lymphocytes % 34.3 Monocytes % 14.8 H Eosinophils % 0.5 Basophils % 0.3 Sodium Potassium Chloride Carbon Dioxide Anion Gap BUN Creatinine Est GFR ( Amer) Est GFR (Non-Af Amer) BUN/Creatinine Ratio Glucose Calcium Total Bilirubin AST ALT Alkaline Phosphatase Total Protein Albumin Globulin Albumin/Globulin Ratio Urine Source CLEAN C Urine Color y Urine Clarity sl. cloudy Urine pH 6.5 Ur Specific [place] 1.010 Urine Protein TRACE Urine Glucose (UA) NEGATIVE Urine Ketones >=80 H Urine Blood NEGATIVE Urine Nitrate NEGATIVE Urine Bilirubin SMALL H Urine Urobilinogen 0.2 Ur Leukocyte Esterase NEGATIVE Urine RBC NONE SEEN Urine WBC 2-5 Ur Epithelial Cells MODERATE Urine Bacteria FEW Urine Test NEGATIVE 12/10/16 06:15 WBC RBC Hgb Hct MCV MCH MCHC Differential RDW Plt Count MPV Neutrophils % Lymphocytes % Monocytes % Eosinophils % Basophils % Sodium 133 L Potassium 3.8 Chloride 107 Carbon Dioxide 21.4 Anion Gap 8.4 BUN 7 Creatinine 0.8 Est GFR ( Amer) > 60.0 Est GFR (Non-Af Amer) > 60.0 BUN/Creatinine Ratio 8.8 Glucose 75 Calcium 8.5 L Total Bilirubin 0.2 L AST 26 ALT 20 Alkaline Phosphatase 43 Total Protein 6.1 Albumin 3.4 L Globulin 2.7 Albumin/Globulin Ratio 1.3 Urine Source Urine Color Urine Clarity Urine pH Ur Specific [place] Urine Protein Urine Glucose (UA) Urine Ketones Urine Blood Urine Nitrate Urine Bilirubin Urine Urobilinogen Ur Leukocyte Esterase Urine RBC Urine WBC Ur Epithelial Cells Urine Bacteria Urine Test Hospital Course: Patient was admitted to Med/surg, she was started with IV NS, NPO except meds, she was started with Metronidazole and later levaquin was added, pain was in control, Consult with Surgery and GI were requested and recommendations were follow. Patient improved but she left AMA. Condition at Discharge: Stable Disposition: AGAINST MEDICAL ADVICE Home Medications: Home Medication Medication Instructions Recorded Type NK [No Home Meds] 12/08/16 History Activity: Unrestricted Discharge Diet: Regular Consults and Follow-Up: UNKNOWN,PCP [Other] not on staff,PCP is [Primary Care Provider] - Consulting Speciality: Other (PCP)
== END 2016-12-10 19:17 | disposition left against medical advice (07) | DRG 372 ==
LOC: ER 14:06 → MSI 17:25
PROVIDERS: ADMIT Internal Medicine; ATTEND Internal Medicine
DX: A06.0 Acute amebic dysentery (principal); K80.10 Calculus of gallbladder with chronic cholecystitis without obstruction; K56.7 Ileus, unspecified; Z53.21 Procedure and treatment not carried out due to patient leaving prior to being seen by health care provider; Z88.0 Allergy status to penicillin
CPT/HCPCS: 36415-UA; 76700-TC; 76856-TC; 80053-TC; 81001-TC; 81025-TC; 82150-TC; 83690-TC; 84443-TC; 84484-TC; 85025-TC; 86592-TC; 90799; 96374; J1885; J7030; Q9967